=== PATIENT | female | born 1970 | race Asian ===

== ENCOUNTER 2020-02-22 07:31 | Outpatient (CLI) | payer OTHER, SELFPAY ==
--- NOTE | 2020-02-22 07:39 | MM_ITS ---
WS: [id number] DIAGNOSTIC LEFT DIGITAL MAMMOGRAM WITH CAD LEFT breast ultrasound, limited HISTORY: 6 MO F/U LT BREAST LUMP COMPARISON: 07/10/2019 and 01/07/2014 Technique: CC, MLO and ML views. Spot compression LEFT CC and MLO. Breast composition: The breasts are heterogeneously dense, which may obscure small masses. Triangular marker is placed along the 6:00 axis. There is very slight interstitial thickening but no discrete m ass identified. No interval change since the prior study. LEFT breast ultrasound: Ultrasound is directed to the 6:00 axis in a similar location as the prior ultrasound. There is a hyp oechoic slightly lobulated nodule at 6:00, 2 cm from the nipple measuring 5 x 3 x 4 mm. No increased vascularity. No increase in size. MM/[place] [id number] IMPRESSION: BI-RADS: 3-Probably Benign FOLLOW UP: 6 Month Follow-up Patient to return for annual mammogram in June 2020. This nodule in the LEFT breast will be reevaluated at this time. Nodule has not changed.
== END 2020-02-22 07:32 | disposition home or self-care (01) ==
LOC: RADSHAW 07:35
PROVIDERS: PCP Family Medicine; Visit Provider Family Medicine
DX: N63.20 Unspecified lump in the left breast, unspecified quadrant (principal)
CPT/HCPCS: 76642; 77065

== ENCOUNTER 2020-08-22 10:03 | Emergency (ER) | payer OTHER, SELFPAY ==
[2020-08-22 10:07] VITALS: BP 171/106; PULSE 81; RESP 18; TEMP 36.3; O2SAT 97; BMI 26.5
--- NOTE | 2020-08-22 10:22 | W.ED.HA ---
HPI - Headache General: Chief Complaint: Headache Stated Complaint: MIGRAINE Time Seen by Provider: 08/22/20 10:10 Source: patient Mode of arrival: ambulatory Limitations: no limitations History of Present Illness: HPI Narrative: 50-year-old female comes in today with complaints of migraine headache. Patient has not been able to get control of her migraine with the use of her Zomig, ibuprofen or even after getting an injection at the clinic yesterday. Patient appears well. Patient appears no acute distress. Patient reports pain behind her right eye and right side of the head. 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 Review of Systems General: Reports: 10 or more systems reviewed and unremarkable except in HPI and below Neuro: Reports: headache(s) Physical Exam Const: COMMON NORMALS: no acute distress and patient oriented x3 GENERAL APPEARANCE: cooperative HENMT: COMMON NORMALS: normocephalic and Normal external nose present HEAD & SCALP: normal to inspection and normocephalic NOSE: Normal external nose present MOUTH: Normal oral and palatal mucosa present Eye: GENERAL EYE: appearance normal, both eyes and all related structures Neck/C-Spine: COMMON NORMALS: full ROM Chest: COMMONS NORMALS: normal inspection of the chest Resp: COMMON NORMALS: normal respiratory effort EFFORT & INSPECTION: Yes able to speak in complete sentences Cardio: COMMON NORMALS: regular rate and regular rhythm RATE: regular rate RHYTHM: regular rhythm GI: COMMON NORMALS: non-tender Back/Pelvis: COMMON NORMALS: thoracic and lumbar spine normal to inspection Extremity: COMMON NORMALS: normal to inspection Neuro: COMMON NORMALS: patient oriented x3 and moves all extremities Psych: COMMON NORMALS: mental status grossly normal and cooperative Skin: COMMON NORMALS: no rashes or lesions noted GENERAL SKIN EXAM: no rashes or lesions noted Course Vital Signs: Vital signs: Vital Signs Temperature 97.3 F L 08/22/20 10:07 Pulse Rate 88 08/22/20 11:14 Respiratory Rate 18 08/22/20 11:14 Blood Pressure 144/91 08/22/20 11:14 Pulse Oximetry 98 08/22/20 11:14 MDM - Headache MDM Narrative: Medical decision making narrative: Patient comes in today for complaints of migraine headache. On exam patient had no focal neural deficits. Patient good handgrips. Abdomen soft nontender. Skin was warm and dry. Differential diagnosis includes but not limited to migraine headache, tension headache, uncontrolled hypertension. Patient did note some elevation of blood pressure on arrival. We treated her headache with Reglan and Benadryl with good results for symptom improvement. I encourage plenty of fluids and maintain usual care. Patient reported understanding agreed to plan. Lab Data: Labs: Lab Results 08/22/20 Range/Units 10:50 Sodium 137 (136-145) mmol/L Potassium 3.9 (3.5-5.1) mmol/L Chloride 101 (98-107) mmol/L Carbon Dioxide 27 (22-29) mmol/L Anion Gap 12.9 (5-19) BUN 9 (6-20) mg/dL Creatinine 0.5 (0.5-0.9) mg/dL GFR Calculation 131.7 H (90-130) mL/min Glucose 107 (65-115) mg/dL Calculated Osmolal ity 283 L (285-295) mOsm/k g Calcium 9.2 (8.5-10.5) mg/dL Discharge Plan Discharge Patient Disposition: Home Clinical Impression: Migraine Qualifiers: Migraine type: unspecified Status migrainosus presence: with status migrainosus Intractability: not intractable Qualified Code(s): G43.901 - Migraine, unspecified, not intractable, with status migrainosus Condition: Stable Discharge Orders: Discharge ED (Routine); Ordered 08/22/20 Ordered By: Perfecto Haines Referrals: Ida Phillips MD [Primary Care Provider] - Discharge Diet: Usual diet Discharge Activity: Increase activity as tolerated Patient Instructions: Migraine Headache (ED) Activity Restrictions/Additional Instructions: Continue with routine care. Drink plenty of water. Follow-up with primary care or neurologist for evaluation of further treatment options for migraine headaches. Return to the emergency department for new concerns. Coding Level of Care Code ED [employer] Director for [employer] Fwd Exam Comprehensive
[2020-08-22 10:55] VITALS: BP 171/100; PULSE 68; RESP 18; O2SAT 96
[2020-08-22] MEDS: dexamethasone 4 mg/mL INJ 8 MG IVP (10:57)
[2020-08-22] MEDS: metoclopramide 5 mg/mL SDV 2 mL 10 MG IVP (10:57)
[2020-08-22] MEDS: diphenhydrAMINE 50 mg/mL SDV 1mL 25 MG IVP (10:57)
[2020-08-22] MEDS: sodium chloride 0.9% 500 ML 999 ML IV (10:57)
[2020-08-22 11:14] VITALS: BP 144/91; PULSE 88; RESP 18; O2SAT 98
[2020-08-22 11:27] LABS: Anion Gap 12.9 (5-19); Blood Urea Nitrogen 9 mg/dL (6-20); Calcium 9.2 mg/dL (8.5-10.5); Carbon Dioxide 27 mmol/L (22-29); Chloride 101 mmol/L (98-107); Glomerular Filtration Rate 131.7 mL/min (90-130); Glucose 107 mg/dL (65-115); Osmolality Calculated 283 mOsm/kg (285-295); Potassium 3.9 mmol/L (3.5-5.1); Sodium 137 mmol/L (136-145)
[2020-08-22 11:51] VITALS: BP 158/97; PULSE 87; RESP 14; O2SAT 97
[2020-08-22] MEDS: ketorolac 30 mg/mL INJ 15 MG IVP (11:53)
== END 2020-08-22 11:51 | disposition home or self-care (01) ==
PROVIDERS: Emergency Provider Nurse Practitioner Family; PCP Family Medicine
DX: G43.901 Migraine, unspecified, not intractable, with status migrainosus (principal)
CPT/HCPCS: 12345; 80048; 96374; 96375; 99283; J1100; J1200; J1885; J2765; J7040

== ENCOUNTER 2020-08-25 12:50 | Outpatient (CLI) | payer OTHER, SELFPAY ==
--- NOTE | 2020-08-25 13:01 | MM_ITS ---
WS: [id number] DIAGNOSTIC BILATERAL DIGITAL MAMMOGRAM WITH CAD LEFT breast ultrasound, limited HISTORY: 6 MO F/U ABNORMAL/INCONCLUSIVE FINDINGS ON DIAGNOSTIC MAMMOGRAM. COMPARISON: 02/22/2020 and 07/10/2019 TECHNIQUE: Bilateral craniocaudad, mediolateral oblique, and mediolateral views are submitted. Spot c ompression LEFT CC. Computer aided detection utilized. Breast composition: The breasts are heterogeneously dense, which may obscure small masses. Palpable a lupe still present at 6:00. By mammography there is no underlying mass or torsion. No suspicious calci fications in either breast. LEFT breast ultrasound, limited. Palpable nodule at 6:00, 2 cm from nipple is again identified. This nodule has slightly changed shape and is now taller than wide. There is some very minimal through transmission. Nodule measures 3 x 5 x 4 mm and not significantly increased in size. Due to the slight change in orientation and the fact that this nodule has become slightly more prominent ultrasound biopsy is recommended. MM/[place] [id number] IMPRESSION: BI-RADS: 4-Suspicious Finding-Biopsy Should Be Considered FOLLOW UP: Biopsy Recommended Ultrasound-guided biopsy LEFT breast nodule at 6:00.
--- NOTE | 2020-08-25 13:30 | US_ITS ---
WS: [id number] DIAGNOSTIC BILATERAL DIGITAL MAMMOGRAM WITH CAD LEFT breast ultrasound, limited HISTORY: 6 MO F/U ABNORMAL/INCONCLUSIVE FINDINGS ON DIAGNOSTIC MAMMOGRAM. COMPARISON: 02/22/2020 and 07/10/2019 TECHNIQUE: Bilateral craniocaudad, mediolateral oblique, and mediolateral views are submitted. Spot c ompression LEFT CC. Computer aided detection utilized. Breast composition: The breasts are heterogeneously dense, which may obscure small masses. Palpable a lupe still present at 6:00. By mammography there is no underlying mass or torsion. No suspicious calci fications in either breast. LEFT breast ultrasound, limited. Palpable nodule at 6:00, 2 cm from nipple is again identified. This nodule has slightly changed shape and is now taller than wide. There is some very minimal through transmission. Nodule measures 3 x 5 x 4 mm and not significantly increased in size. Due to the slight change in orientation and the fact that this nodule has become slightly more prominent ultrasound biopsy is recommended. US/US breast LT limited* [id number] IMPRESSION: BI-RADS: 4-Suspicious Finding-Biopsy Should Be Considered FOLLOW UP: Biopsy Recommended Ultrasound-guided biopsy LEFT breast nodule at 6:00.
== END 2020-08-25 12:51 | disposition home or self-care (01) ==
LOC: RADSHAW 12:52
PROVIDERS: PCP Family Medicine; Visit Provider Family Medicine
DX: R92.8 Other abnormal and inconclusive findings on diagnostic imaging of breast (principal); N63.25 Unspecified lump in the left breast, overlapping quadrants
CPT/HCPCS: 76642; 77066

== ENCOUNTER 2020-09-03 11:48 | Outpatient (CLI) | payer OTHER, SELFPAY ==
--- NOTE | 2020-09-03 14:00 | US_ITS ---
WS: [id number] ULTRASOUND-GUIDED LEFT BREAST BIOPSY HISTORY: Palpable LT breast nodule at 6:00 COMPARISON: 08/25/2020 Procedure, risks and complications are explained to the patient. Medications are reviewed. Consent is obtained. The mass in the LEFT breast is localized with ultrasound. Masses 6:00, 2 cm from the nipple. Skin is cleansed with ChloraPrep and anesthetized with 1% buffered lidocaine. Small dermatome is made. Under sterile conditions mass is biopsied with a 14-gauge Achieve needle. Multiple core biopsies are perfor med. Material placed in formalin and sent to pathology for review. No complications encountered. Afte r the initial 2 biopsies this mass nearly completely collapsed. Breast tissue marker (Bard ultrasound enhanced ribbon): Single. Patient left the radiology suite with no complications. [place] [facility] [place] [facility] with any concerns. US/[place] [id number] IMPRESSION: 1. Uncomplicated core needle biopsy cystic mass 6:00, 2 cm from the nipple. PATHOLOGY: Fibrocystic changes with duct ectasia. No malignancy. RECOMMENDATION: Diagnostic LEFT mammogram 6 months. Imaging and pathology findings are concordant.
== END 2020-09-03 11:49 | disposition home or self-care (01) ==
LOC: RAD 11:51
PROVIDERS: PCP Family Medicine; Visit Provider Family Medicine
DX: R92.8 Other abnormal and inconclusive findings on diagnostic imaging of breast (principal); N63.25 Unspecified lump in the left breast, overlapping quadrants; N60.42 Mammary duct ectasia of left breast
CPT/HCPCS: 19083; 88305

== ENCOUNTER 2020-09-10 15:16 | Outpatient (CLI) | payer OTHER, SELFPAY ==
--- NOTE | 2020-09-10 15:20 | MR_ITS ---
WS: [id number] MRI BRAIN WITHOUT CONTRAST HISTORY: MIGRAINE nonspecific, NOT INTRACTABLE W/O STATUS MIGRAINOSUS COMPARISON: None available. TECHNIQUE: Diffusion imaging, multiplanar T1, T2 and FLAIR imaging obtained. No evidence for acute infarct or hemorrhage. Lomeli-white matter differentiation is normal. No prior large territory infarcts. There are numerous 3 to 4 mm hyperintensity scattered throughout t he white matter predominantly in a subcortical distribution. No large territory infarct or atrophy. Ventricles and extra-axial spaces are normal. No inferior displacement of cerebellar tonsils. The sella turcica and pituitary gland are unremarkabl e. Posterior fossa is also unremarkable. Dural venous sinuses and [place] demonstrate no abnormality on this unenhanced studies. Paranasal sinuses: Clear. Mastoid air cells: Normal. Calvarium and scalp: Intact. MR/MR head wo con* [id number] IMPRESSION: 1. No acute infarcts or masses. 2. Numerous scattered T2 and FLAIR signal hyperintensities. This is typically seen with chronic microvascular disease, hypertension, migraines and less likel y demyelinating disease.
== END 2020-09-10 15:17 | disposition home or self-care (01) ==
LOC: RADSHAW 15:19
PROVIDERS: PCP Family Medicine; Visit Provider Family Medicine
DX: G43.909 Migraine, unspecified, not intractable, without status migrainosus (principal)
CPT/HCPCS: 70551

== ENCOUNTER 2022-04-01 13:30 | Outpatient (CLI) | payer OTHER, SELFPAY ==
--- NOTE | 2022-04-01 13:48 | XR_ITS ---
WS: [id number] Right knee, 3 views, 04/01/2022 Clinical Data: KNEE PAIN Comparison: None. Findings: No fractures or dislocations are seen. The joint spaces are normal. The patella is intact. There is m inimal calcification adjacent to the proximal medial tibia in the subcutaneous tissue which may be re lated to old trauma. XR/XR knee RT 3V* [id number] Impression: Negative right knee. Kellgren-Nas Classification: grade 0 (none): definite absence of x-ray consuelo nges of osteoarthritis
== END 2022-04-01 13:31 | disposition home or self-care (01) ==
LOC: RAD 13:34
PROVIDERS: PCP Family Medicine; Visit Provider Family Medicine
DX: M25.561 Pain in right knee (principal)
CPT/HCPCS: 73562

== ENCOUNTER 2022-04-02 10:01 | Outpatient (CLI) | payer OTHER, SELFPAY ==
--- NOTE | 2022-04-02 10:15 | XR_ITS ---
WS: [id number] Left knee, 3 views, 04/02/2022 Clinical Data: Knee pain Comparison: None. Findings: No fractures or dislocations are seen. The joint spaces are normal. The patella is intact. The soft t issues are unremarkable. XR/XR knee LT 3V* [id number] Impression: Negative left knee. Kellgren-Nas Classification: grade 0 (none): definite absence of x-ray consuelo nges of osteoarthritis
== END 2022-04-02 10:02 | disposition home or self-care (01) ==
LOC: RAD 10:03
PROVIDERS: PCP Family Medicine; Visit Provider Family Medicine
DX: M25.561 Pain in right knee (principal)
CPT/HCPCS: 73562

== ENCOUNTER 2022-11-01 13:12 | Outpatient (CLI) | payer BC, OTHER, SELFPAY ==
--- NOTE | 2022-11-01 13:31 | MR_ITS ---
WS: [id number] MRI LEFT KNEE NONCONTRAST TECHNIQUE: Axial PD, coronal PD fat sat, coronal PD, sagittal PD, and sagittal PD fat-sat images obta ined. CLINICAL INFORMATION: LT KNEE PAIN COMPARISON: None. FINDINGS: Distal quadriceps and patella tendons are intact. Normal ACL and PCL. Mucoid degeneration involving t he ACL. Blunting with tear of the anterior horn lateral meniscus. Associated edema. Medial meniscus appears intact. Small suprapatellar effusion. Advanced chondromalacia patella with a small amount of subchondral edema. Medial and lateral patellar retinaculum appear intact. Small amount of fluid and edema along the MCL which appears intact. Tiny popliteal cyst. Fluid and ed amie along the lateral collateral ligament which appears intact. Moderate chondromalacia involving the medial and lateral joint compartments. No significant subchondral edema. MR/MR knee LT wo con* [id number] IMPRESSION: 1. ACL and PCL appear intact. Mucoid degeneration involving along the ACL. 2. Acute appearing tear involving the anterior horn lateral meniscus with blun ting. Associated edema. Medial meniscus appears intact. 3. Small amount of fluid and edema along the collateral ligaments worse along the lateral collateral ligament suspicious for grade 1-2 injury. MCL appears in tact. 4. Tiny popliteal cyst. 5. Advanced chondromalacia patella with small suprapatellar effusion.Small nick unt of subchondral edema. Outbridge grading: grade IV: full-thickness cartilage loss with underlying bone reactive changes
== END 2022-11-01 13:13 | disposition home or self-care (01) ==
PROVIDERS: PCP Family Medicine; Visit Provider Family Medicine
DX: M22.42 Chondromalacia patellae, left knee (principal); M25.462 Effusion, left knee; R60.0 Localized edema; M71.22 Synovial cyst of popliteal space [Baker], left knee; S83.282A Other tear of lateral meniscus, current injury, left knee, initial encounter; X58.XXXA Exposure to other specified factors, initial encounter
CPT/HCPCS: 73721

== ENCOUNTER → 2022-11-15 13:52 | Outpatient (BNVA) | payer BC, OTHER, SELFPAY | PROVIDERS: PCP Family Medicine; Referring Provider Family Medicine; Visit Provider Student in an Organized Health Care Education/Training Program | DX: M22.42 Chondromalacia patellae, left knee (principal); S83.282A Other tear of lateral meniscus, current injury, left knee, initial encounter; X58.XXXA Exposure to other specified factors, initial encounter | CPT/HCPCS: 73560; 73565 ==

== ENCOUNTER 2022-12-03 06:44 | Day surgery (SDC) | payer BC, OTHER, SELFPAY ==
[2022-12-02 09:10] VITALS: BMI 25.7
[2022-12-03] VITALS (11 sets, daily range): BP systolic 122–168; BP diastolic 80–104; PULSE 70–95; RESP 16–18; TEMP 36.1–36.6; O2SAT 99–100
[2022-12-03 07:21] LABS: OR HCG Qualitative Urine Negative (Negative)
[2022-12-03] MEDS: sodium chloride 0.9% 1,000 ML 30 ML IV (07:22)
[2022-12-03] MEDS: acetaminophen 1,000 MG/100 ML PIGGYBACK 400 MG IV (07:28)
[2022-12-03] MEDS: ketorolac 30 mg/mL INJ IVP (07:29)
--- NOTE | 2022-12-03 07:59 | ANES.PREANE2 ---
Pre-Anesthetic Assessment Height/Weight: Height 1.6 m Weight 65.771 kg Temp Pulse Resp BP Pulse Ox O2 Del Method 97 F L 78 18 168/104 99 12/03/22 07:03 12/03/22 07:03 12/03/22 07:03 12/03/22 07:03 12/03/22 07:03 12/03/22 07:05 Preop Diagnosis: Left knee lateral meniscus tear, patella chondromalacia Operation Date: 12/03/22 08:40 Proposed Procedures p left knee diagnostic and surgical arthroscopy 76979 with partial lateral meniscectomy 75497 and chondroplasty M22.42, S83.289A(Left) - Zen Vee DO s Meniscectomy Partial Lateral Meniscectomy w/ Chondroplasty(Left) - Zen Vee DO Familial anesthetic complications: none Was Beta Otto taken within 24 hours: Yes Was Clonidine taken within 24 hours: N/A Last intake: Intake Last Liquid Date 12/02/22 Last Liquid Time 23:00 Last Solid Date 12/02/22 Last Solid Time 19:00 Social No alcohol and No tobacco Exam alert, oriented x 3, clear to auscultation bilaterally and regular rate & rhythm Airway Submandibular: within normal limits Cervical ROM: within normal limits Mallampati: Class II Dentition: false CV/HEM Hypertension Metabolic Thyroid Disease Anesthetic Plan ASA status: 2 Anesthesia: General Medications/Allergies Home Medications Medication Instructions Recorded Confirmed Last Taken Type amitriptyline 10 mg tablet 10 mg PO DAILY 10/05/21 12/02/22 12/02/22 20:30 History levothyroxine 50 mcg capsule 50 mcg PO DAILY 10/05/21 12/02/22 12/02/22 20:30 History metoprolol succinate 25 mg 25 mg PO DAILY 10/05/21 12/03/22 12/02/22 20:30 History tablet,extended release 24 hr omega 6-gqa-ogc-fish oil 60 mg-90 1 cap PO DAILY 11/03/22 12/02/22 12/02/22 20:30 History mg-500 mg capsule (Fish Oil) tretinoin 0.025 % topical cream 1 applic topical Q3D #45 grams 11/17/22 12/02/22 12/02/22 20:30 Rx Allergies Allergy/AdvReac Type Severity Reaction Status Date / Time No Known Allergies Allergy Verified 12/03/22 07:11 Current Medications Generic Name Dose Route Start Last Admin Trade Name Trevin PRN Reason Stop Dose Admin Sodium Chloride 1,000 mls @ 30 mls/hr 12/03/22 07:00 12/03/22 07:22 Sodium Chloride 0.9% IV 12/04/22 06:59 30 mls/hr .Q24H LANDON Administration PFSH Anesthesia Medical History (Updated 11/19/22 @ 23:48 by Zen Vee DO) Chondromalacia patellae, left knee HTN (hypertension) Hypothyroid Lateral meniscus tear Stress headaches Surgical History History of thyroid surgery Social History Smoking and tobacco status: never smoked Data Anesthesia Cardiac Studies: No Data to Display
--- NOTE | 2022-12-03 08:18 | W.PM.OPSUD ---
Surgery/Procedure H&P Update DATE OF PROCEDURE: December 03, 2022 DATE H&P PERFORMED: 11/15/22 CHANGES TO PREVIOUS DOCUMENTATION: None PREOP DIAGNOSIS: Left knee lateral meniscus tear, patella chondromalacia PRIMARY INDICATION FOR PROCEDURE: Left knee lateral meniscus tear and patella chondromalacia PLANNED PROCEDURE: Operation Date: 12/03/22 08:40 Proposed Procedures p left knee diagnostic and surgical arthroscopy 27564 with partial lateral meniscectomy 03999 and chondroplasty M22.42, S83.289A(Left) - Zen Vee DO s Meniscectomy Partial Lateral Meniscectomy w/ Chondroplasty(Left) - Zen Vee DO
[2022-12-03] MEDS: ceFAZolin 2,000 MG in sodium chloride 0.9% (plus) 50 ML 100 MG IV (09:21)
[2022-12-03] MEDS: lidocaine-epi 2% 20 mL INJ INJECTION ×2 (09:49→09:50)
--- NOTE | 2022-12-03 10:10 | PC.NURSE ---
Pt arrived to PACU, oral airway in place, O2 at 6L/min via simple mask. Dressing to left knee C/D/I, left toes, p/w/d, cap refill <3 seconds, ice pack applied.
[2022-12-03] MEDS: HYDROcodone-acetaminophen 5-325 mg Tablet 1 TAB PO (11:02)
--- NOTE | 2022-12-03 13:07 | P.OP_ITS ---
Operative Report Date of procedure: December 03, 2022 Pre-op diagnosis: Preop Diagnosis Left knee lateral meniscus tear, patella chondromalacia Procedure: Post-op diagnosis: Left knee lateral meniscus tear, extensive synovitis, chondromalacia Procedure done: Left knee diagnostic and surgical arthroscopy with partial lateral meniscectomy left knee diagnostic and surgical arthroscopy with medial and patellofemoral compartment chondroplasties Left knee diagnostic and surgical arthroscopy with extensive synovectomy of medial lateral patellofemoral compartments Surgeon: Zen Vee DO Estimated blood loss: 5 mL No tourniquet was used IV fluids: See anesthesia record Complications: None Findings: See operative report narrative Condition: stable Disposition: same day Brief History: Patient presented to my office in the outpatient setting for evaluation of left knee pain.? She presented with an MRI findings consistent with below ? MR/MR knee LT wo con* [id number] IMPRESSION: ? 1.? ACL and PCL appear intact. Mucoid degeneration involving along the ACL. 2.? Acute appearing tear involving the anterior horn lateral meniscus with blunting. Associated edema. Medial meniscus appears intact. 3.? Small amount of fluid and edema along the collateral ligaments worse along the lateral collateral ligament suspicious for grade 1-2 injury. MCL appears intact. 4.? Tiny popliteal cyst. 5.? Advanced chondromalacia patella with small suprapatellar effusion.Small amount of subchondral edema. ? We talked in detail about her treatment options as far as nonoperative and operative intervention.? We talked about the risk benefits complication alternatives to each treatment option.? Ultimately given the patient's persistent symptomatic meniscal tear and goals of trying to preserve cartilage and better function of meniscus we talked about surgical intervention of the left knee diagnostic and surgical arthroscopy with partial lateral meniscectomy , chondroplasty. Understanding the risks with surgery this point time she elects proceed.? All questions answered. Procedure: Patient seen and evaluated in the preoperative holding area.? Consent was reviewed and signed with patient.? Correct extremity was then marked.? Patient seen evaluated Anesthesia Department once cleared for surgery patient was taken back to the operative suite.? Patient was transported onto the OR table in supine position.? All bony prominences well-padded patient was appropriate secured to the bed.? Once appropriately anesthetized a nonsterile tourniquet was applied to the left thigh.? The left lower extremity was then prepped and draped in standard orthopedic fashion.? Final timeout performed.? Patient received appropriate preoperative antibiotics. Patient received local anesthetic of lidocaine with epinephrine into the joint as well as around the portal sites.? No tourniquet was inflated during this case. A standard 2 portal vertical incision diagnostic and surgical arthroscopy of the left knee was performed in standard fashion.? Small stab incision made in the inferolateral portal introduced trocar and arthroscope into the suprapatellar pouch.? Suprapatellar pouch was subsequently visualized and found to have significant synovitis but no loose bodies.? Patient had noticeable significant infrapatellar fat pad and thickening hypertrophic within the patellofemoral compartment. ?The medial gutter was free of loose bodies I then introduced the arthroscope into the medial compartment.? Within the medial compartment I then established my inferior medial working portal utilizing spinal needle outside in technique.? Once established I then visualized our articular cartilage of the medial compartment with a valgus stress.? Patient was found to have grade 2 chondromalacia throughout the medial compartment.? Next I inspected the meniscus.? With an arthroscopic probe was utilized to visual? all aspects of the meniscus.? Meniscal root was found to be intact, and no other evidence of medial meniscus tear was noted. Utilizing thermal wand and arthroscopic shaver did perform a medial compartment chondroplasty to stable articular tissue. Next a introduced the arthroscope to the intercondylar notch.? PCL and ACL were intact. patient had significant thickening of the infrapatellar fat pad spanning into the medial and lateral compartments.? I then performed an extensive synovectomy with the arthroscopic shaver of the patellofemoral medial and lateral compartments as well as the intercondylar notch. Advance the scope into the retrocruciate space and no loose bodies were found. Next I introduced the arthroscope into the lateral compartment the lateral compartment was found to have grade 1-2 chondromalacia throughout.?? The me niscus was inspected and found complex tear of the anterior horn the lateral meniscus. I then introduced an arthroscopic shaver and thermal wand to perform a partial lateral meniscectomy to stable meniscal tissue. I then utilizing the arthroscopic probe evaluated the entirety of the meniscus and the rest was intact. next of the arthroscope was placed into the lateral gutter and this was free of loose bodies.? Finally I reintroduced the arthroscope into the patellofemoral compartment.? The patellofemoral was found to have grade 2-3 chondromalacia.??Arthroscopic shaver and thermal wand was used to perform a chondroplasty of the patellofemoral compartment. This was taken to stable articular tissue. Next I used the arthroscopic shaver to complete my extensive synovectomy and debridement of the infrapatellar thickened and hypertrophic fat pad to have complete space of the patellofemoral compartment on the medial aspect.? Next I then switched the arthroscope to the medial working portal and visualized the extent extensive synovitis laterally and then introduced the arthroscopic shaver and completed my synovectomy.? This completed patient's diagnostic and surgical arthroscopy.? All fluid was suctioned from the joint.? Once again hemostasis was satisfactory.? All instruments were withdrawn.? Portal sites were closed with interrupted nylon suture.? Dressed with Xeroform 4 x 4's ABD Curlex and Meng wrap.? Patient was then subsequently awakened from anesthesia and taken to PACU in stable condition. Disposition: Patient taken to PACU in stable condition recovering well.? Will receive appropriate discharge structure as well as pain medication postoperatively as well as daily aspirin for DVT prophylaxis.? We will have patient follow-up with us in the office in 2 weeks.? We will weightbearing as tolerated to the left lower extremity.? Patient understands and agrees with current plan.? All questions answered.
--- NOTE | 2022-12-03 13:07 | PM.OP2 ---
Brief Operative Note Date of procedure: 12/03/22 Pre-op diagnosis: Left knee lateral meniscus tear, chondromalacia patella Post-op diagnosis: same Procedure Done: Left knee diagnostic and surgical arthroscopy with partial lateral meniscectomy Left knee diagnostic and surgical arthroscopy with medial and patellofemoral compartment chondroplasties Left knee diagnostic and surgical arthroscopy extensive synovectomy of medial, lateral, patellofemoral compartment Surgeon: Zen Vee Estimated blood loss (mL): 5 Complications: None Post-op Plan: Patient taken to PACU in stable condition recovering well. Patient will receive appropriate discharge instruction as well as pain medication postoperatively. She will be allowed weightbearing as tolerated to the left lower extremity. We will follow-up with me in the office in 2 weeks. Patient understands and agrees with current plan. All questions answered. Condition: stable Disposition: same day Coding Level of Care Code Acute Code for Lizeth Kiran
--- NOTE | 2022-12-03 13:07 | PM.PACU ---
PACU note Narrative: Patient taken to PACU in stable condition, recovering well. Patient is able to wiggle toes, plantarflex dorsiflex ankle distal pulses palpable dressing on in place clean dry and intact. Sensation intact to light touch distally. Exam: awake Disposition: discharged
--- NOTE | 2022-12-03 14:08 | ANE.PACU2 ---
Inpatient post-anesthesia follow up: Airway intact: Yes Vital signs: Temperature 97 F Pulse Rate 72 Respiratory Rate 18 Blood Pressure 160/97 Pulse Oximetry 100 Oxygen Delivery Me thod Room Air Oxygen Flow Rate 6 Fraction of Inspir ed Oxygen Hydration adequate: Yes Nausea and vomiting: No Pain level: 3 Mental status: Baseline
== END 2022-12-03 11:44 | disposition home or self-care (01) ==
PROVIDERS: Anesthesiology; PCP Family Medicine; Visit Provider Student in an Organized Health Care Education/Training Program
PROC: (CPT 29870; principal; 2022-12-03 08:30)
PROC: (CPT 29876; 2022-12-03 08:30)
DX: S83.282A Other tear of lateral meniscus, current injury, left knee, initial encounter (principal); X58.XXXA Exposure to other specified factors, initial encounter; M22.42 Chondromalacia patellae, left knee; M65.9 Synovitis and tenosynovitis, unspecified; I10 Essential (primary) hypertension; E03.9 Hypothyroidism, unspecified
CPT/HCPCS: 29876; 29881; 81025; 84703; J0131; J0690; J1100; J1885; J2250; J2370; J2405; J2704; J3010; J7030

== ENCOUNTER 2023-01-05 06:00 | Outpatient (RCR) | payer BC, OTHER, SELFPAY | END 2023-01-16 23:59 | disposition home or self-care (01) | LOC: SPT 06:00 | PROVIDERS: Visit Provider Student in an Organized Health Care Education/Training Program | DX: Z47.89 Encounter for other orthopedic aftercare (principal); Z98.890 Other specified postprocedural states | CPT/HCPCS: 97110; 97161 ==

== ENCOUNTER 2023-01-17 06:00 | Outpatient (RCR) | payer BC, OTHER, SELFPAY | END 2023-02-16 23:59 | disposition home or self-care (01) | LOC: SPT 06:00 | PROVIDERS: Visit Provider Student in an Organized Health Care Education/Training Program | DX: Z47.89 Encounter for other orthopedic aftercare (principal) | CPT/HCPCS: 97110 ==

== ENCOUNTER 2023-02-17 06:00 | Outpatient (RCR) | payer BC, OTHER, SELFPAY | END 2023-02-23 23:59 | disposition home or self-care (01) | LOC: SPT 06:00 | PROVIDERS: Visit Provider Student in an Organized Health Care Education/Training Program | DX: M25.662 Stiffness of left knee, not elsewhere classified (principal); M25.562 Pain in left knee; R53.1 Weakness | CPT/HCPCS: 97110 ==

== ENCOUNTER 2024-02-14 14:14 | Outpatient (CLI) | payer OTHER, SELFPAY ==
--- NOTE | 2024-02-14 14:30 | MM_ITS ---
WS: [id number] BILATERAL 3D TOMOSYNTHESIS DIGITAL SCREENING MAMMOGRAPHY WITH CAD CLINICAL INFORMATION: SCREENING HISTORY: Screening mammogram. No current complaints. COMPARISON: 2020 TECHNIQUE: Bilateral CC and MLO views. FINDINGS: The breasts are composed of heterogeneous fibroglandular density tissue, which can limit the detectio n of small underlying mass lesions. No suspicious mass, asymmetry, calcifications, or architectural d istortion. No evidence of malignancy. Biopsy clip LEFT breast MM/[place] [id number] IMPRESSION: BI-RADS: 2-Benign FOLLOW UP: 1 Year Follow-up Recommend return to annual screening mammography.
== END 2024-02-14 14:15 | disposition home or self-care (01) ==
LOC: MOBLMAM 14:28
PROVIDERS: PCP Family Medicine; Visit Provider Family Medicine
DX: Z12.31 Encounter for screening mammogram for malignant neoplasm of breast (principal); R92.323 Mammographic fibroglandular density, bilateral breasts; R92.333 Mammographic heterogeneous density, bilateral breasts
CPT/HCPCS: 77063; 77067

== ENCOUNTER 2025-03-15 09:49 | Outpatient (CLI) | payer OTHER, SELFPAY ==
--- NOTE | 2025-03-15 09:55 | MM_ITS ---
WS: [id number] BILATERAL SCREENING DIGITAL TOMOSYNTHESIS MAMMOGRAM WITH CAD HISTORY: SCREENING COMPARISON: 02/14/2024, 08/25/2020 Bilateral CC and MLO views with tomosynthesis and synthetic mammography submitted. Computer aided detection analyzed. Breast composition: There are scattered areas of fibroglandular density. No suspicious masses, microcalcifications or architectural distortion. Biopsy clip around the 6:00 axis LEFT breast. MM/MM scr BI tomosynthesis [id number] IMPRESSION: BI-RADS: 2 - Benign. FOLLOW UP: 1 Year Follow-up
== END 2025-03-15 09:50 | disposition home or self-care (01) ==
LOC: RAD 09:52
PROVIDERS: PCP Family Medicine; Visit Provider Family Medicine
DX: Z12.31 Encounter for screening mammogram for malignant neoplasm of breast (principal); R92.323 Mammographic fibroglandular density, bilateral breasts; Z97.8 Presence of other specified devices
CPT/HCPCS: 77063; 77067

== ENCOUNTER 2025-07-03 06:14 | Outpatient (CLI) | payer OTHER, SELFPAY ==
--- NOTE | 2025-07-03 06:27 | US_ITS ---
WS: [id number] RIGHT UPPER QUADRANT ULTRASOUND HISTORY: PRIMARY BILIARY CIRRHOSIS COMPARISON: None available. Liver: 16.4 cm in length. Liver is normal size. Diffuse coarse echotexture and heterogeneity throughout the liver. Areas of increased and decreased echogenicity. No mass or intrahepatic duct dilatation. Surface of the liver is very slightly irregular and nodular. Portal Vein: Small caliber portal vein. Limited evaluation of the portal vein. Only a few images are submitted but the wall appears thick and the lumen is narrowed. Gallbladder: Mildly contracted. No stones identified. CBD: 0.4 cm Pancreas: Echogenic pancreas. No mass. Right kidney: 10.0 cm in length. Normal size kidney. Tiny nonobstructing calcification in the lower pole is suspected. There is no hydronephrosis. Aorta and IVC: Unremarkable abdominal aorta and IVC. No ascites. US/US abdomen limited [id number] IMPRESSION: 1. Diffusely heterogeneous appearance of the liver with a small caliber portal vein with thick coleman. Findings consistent with diagnosis of primary biliary c irrhosis. 2. Mildly contracted gallbladder. No stones identified. 3. Fatty replacement of the pancreas. 4. No intrahepatic duct dilatation.
== END 2025-07-03 06:15 | disposition home or self-care (01) ==
PROVIDERS: PCP Nurse Practitioner Family; Visit Provider Dietitian, Registered
DX: R74.8 Abnormal levels of other serum enzymes (principal); K74.3 Primary biliary cirrhosis; K76.89 Other specified diseases of liver; K82.0 Obstruction of gallbladder; K86.89 Other specified diseases of pancreas
CPT/HCPCS: 76705